=== PATIENT | male | born 1990 | race Caucasian/White ===

== ENCOUNTER 2020-06-25 09:40 | Emergency (ER) | payer BC, SELFPAY ==
[2020-06-25 09:50] VITALS: BP 140/87; PULSE 84; RESP 16; TEMP 36.6; O2SAT 98
--- NOTE | 2020-06-25 09:53 | ED.SKABFB ---
HPI - Skin/Abscess/Foreign Bdy General Chief complaint: Skin/Abscess/Foreign Body Stated complaint: Rash Time Seen by Provider: 06/25/20 09:53 Source: patient and RN notes reviewed History of Present Illness HPI narrative: Patient is a 30-year-old male who presents the urgent care with complaints of an abscess to the back of the right thigh. States that it started approximately 1 week ago. Patient states that he initially had a rash and had been scratching and picking at the region which developed increased redness and swelling. Patient states that the area started draining yesterday. Patient has not used anything [id number] for his symptoms. Patient did a tele-med call with his PCP yesterday and was advised to follow-up at the emergency room for an I&D. Patient will follow-up with his PCP next week. Patient was not prescribed any antibiotics at the time of his tele-visit. Denies of any fever, chills, nausea, vomiting. No other acute complaints. No acute distress noted. Patient aware of the plan of care. Related Data Allergies Allergy/AdvReac Type Severity Reaction Status Date / Time No Known Allergies Allergy Unknown Unverified 07/09/14 10:33 Review of Systems Review of Systems: Narrative: CONSTITUTIONAL: Denies fever, chills, or sweats. EYES: Denies visual changes, redness, or discharge. ENT: Denies rhinorrhea, congestion, sore throat, or otalgia. CARDIOVASCULAR: Denies chest pain, palpitations, or edema. RESPIRATORY: Denies cough or dyspnea. GASTROINTESTINAL: Denies abdominal pain, nausea, vomiting, or diarrhea. GENITOURINARY: Denies dysuria or hematuria. SKIN: Right upper thigh abscess with redness, swelling, pain and drainage MUSCULOSKELETAL: Denies back pain, joint pain, or myalgia. NEUROLOGIC: Denies headache, numbness, or weakness. All other systems reviewed are negative, except as documented in HPI. [facility] Social History Social History Smoking status: Former smoker Smoking end date: 11/18/16 Alcohol intake: never Comments At the time of my signature, I reviewed and agree with the nursing past medical, surgical, social, and family history. There is no relevant family history pertinent to the patient complaint. Exam Narrative: Exam Narrative: GENERAL: This is a well-nourished, well-developed patient, in no apparent distress. HEAD: normocephalic, atraumatic. EYES: PERRL. Sclera clear/white. Vision is grossly intact. EARS: External ears normal NOSE: External nose normal with no obvious nasal discharge, nares without redness, no rhinorrhea. THROAT: Mucous membranes moist NECK: Neck supple SKIN: 8 x 9 cm erythemic abscess with approximately 2 cm crusted center to the right medial thigh with yellow to bloody drainage NEURO: awake, alert, and oriented to person, place and time. There were no obvious focal neurologic abnormalities. EXTREMITIES: No clubbing, cyanosis, or edema. Course Vital Signs Vital signs: Vital Signs Temperature 97.8 F 06/25/20 09:50 Pulse Rate 84 06/25/20 09:50 Respiratory Rate 16 06/25/20 09:50 Blood Pressure 140/87 06/25/20 09:50 Pulse Oximetry 98 06/25/20 09:50 Temperature 97.8 F 06/25/20 09:50 Pulse Rate 84 06/25/20 09:50 Respiratory Rate 16 06/25/20 09:50 Blood Pressure 140/87 06/25/20 09:50 Pulse Oximetry 98 06/25/20 09:50 Reviewed MDM - Skin/Abscess/Foreign Bdy MDM Narrative Medical decision making narrative: Advised the patient to complete oral antibiotic regimen as prescribed. Keep the area covered while wearing long pants or for risk of being soiled. Do not submerge yourself in any rodriguez or pond water for any reason with the infection present. Do not use a steroid cream on the area. Use prescription cream twice a day as directed. Clean the area with plain Dial soap and water twice a day or as needed. Keep the area open to air as much as possible while at home or not at risk of b
== END 2020-06-25 10:06 | disposition home or self-care (01) ==
PROVIDERS: Emergency Provider Nurse Practitioner Family; PCP Family Medicine
DX: L02.415 Cutaneous abscess of right lower limb (principal); Z87.891 Personal history of nicotine dependence
CPT/HCPCS: 99213; G0463